=== PATIENT | female | born 1935 | race Caucasian/White ===

== ENCOUNTER 2017-10-21 20:37 | Inpatient (IN) | payer MEDICARE, MEDICAID ==
[~2017-10-21] VITALS: Ht 160 cm; Wt 73.5 kg
[2017-10-21] MEDS ORDERED: LORAZEPAM 2 MG/1 ML VIAL ONE (20:48)
[2017-10-21] MEDS ORDERED: LORAZEPAM 2 MG/1 ML VIAL IM ONE (21:00)
--- NOTE | 2017-10-21 21:00 | NUR ---
PT BIB PRIVATE AMBULANCE FROM [facility] WITH 5150 (DTO). UPON ARRIVAL, PT IS AGITATED & YELLING AT STAFF MEMBERS.
[2017-10-21 21:27] LABS: BASOPHILS # (AUTO) 0.1 K/uL (0.0-8.0); BASOPHILS % (AUTO) 0.7 % (0.0-2.0); EOSINOPHILS # (AUTO) 0.2 K/uL (0.0-0.7); EOSINOPHILS % (AUTO) 1.3 % (0.0-7.0); HEMATOCRIT 44.3 % (31.2-41.9); HEMOGLOBIN 14.6 g/dL (10.9-14.3); LYMPHOCYTES # (AUTO) 1.6 K/uL (20.0-40.0); LYMPHOCYTES % (AUTO) 12.3 % (20.5-51.5); MEAN CORPUSCULAR HEMOGLOBIN 27.2 uug (24.7-32.8); MEAN CORPUSCULAR HGB CONC 33 g/dL (32.3-35.6); MEAN CORPUSCULAR VOLUME 82.5 fL (75.5-95.3); NEUTROPHILS # (AUTO) 9.9 K/uL (1.8-8.9); NEUTROPHILS % (AUTO) 77.7 % (38.5-71.5); PLATELET COUNT (AUTO) 167 K/uL (179-408); RED BLOOD CELL COUNT(AUTO) 5.37 MIL/uL (3.63-4.92); WHITE BLOOD COUNT (AUTO) 12.8 K/uL (3.8-11.8)
[2017-10-21 21:39] LABS: ETHANOL < 3 MG/DL (0-0)
[2017-10-21 21:43] LABS: CARBON DIOXIDE 26 mmol/L (21-32); CHLORIDE 105 mmol/L (98-107); GLUCOSE 161 mg/dL (74-106); POTASSIUM 3.7 mmol/L (3.5-5.1); UREA NITROGEN, BLOOD 21 mg/dL (7-18)
[2017-10-21 21:49] LABS: ALANINE AMINOTRANSFERASE 22 U/L (14-59); ALKALINE PHOSPHATASE 70 U/L (50-136); ASPARTATE AMINOTRANSFERASE 23 U/L (15-37); BILIRUBIN,DIRECT 0.2 mg/dL (0.0-0.2); BILIRUBIN,TOTAL 0.8 mg/dL (0.2-1.0); TOTAL PROTEIN, SERUM 7.6 g/dL (6.4-8.2)
[2017-10-21 21:52] LABS: THYROID STIMULATING HORMONE 1.754 mIU/mL (0.358-3.740)
[2017-10-21 21:57] LABS: ACETAMINOPHEN < 2.0 ug/mL (10-30)
[2017-10-21] MEDS ORDERED: RISP0.253 PO (22:06)
[2017-10-21] MEDS ORDERED: VALP250S3 PO (22:06)
[2017-10-21] MEDS ORDERED: DOCU100C36 PO (22:06)
[2017-10-21] MEDS ORDERED: CARV3.122 PO (22:06)
[2017-10-21] MEDS ORDERED: ASPI-605 PO (22:06)
[2017-10-21] MEDS ORDERED: MULT1TAB73 PO (22:06)
[2017-10-21] MEDS ORDERED: ACET325T53 PO (22:06)
[2017-10-21] MEDS ORDERED: CLON0.3P TD (22:06)
[2017-10-21] MEDS ORDERED: LORA10TA7 PO (22:06)
[2017-10-21] MEDS ORDERED: CYAN10009 PO (22:06)
[2017-10-21] MEDS ORDERED: MAGN400O6 PO (22:06)
--- NOTE | 2017-10-21 22:40 | NUR ---
PT'S URINE SAMPLE BROUGHT TO LAB
[2017-10-21 23:06] LABS: *BILIRUBIN,URIN NEGATIVE (NEGATIVE); *BLOOD, URINE 1+ (NEGATIVE); *CLARITY,URINE CLEAR (CLEAR); *COLOR,URINE YELLOW (YELLOW); *KETONES,URINE NEGATIVE (NEGATIVE); *PROTEIN,URINE 1+ (NEGATIVE); *UROBILINOGEN,URINE 0.2 E.U./dl (NORMAL); LEUKOCYTE ESTERASE ,URINE TRACE (NEGATIVE); NITRITE, URINE NEGATIVE (NEGATIVE); UGLUCOSE NEGATIVE (NEGATIVE)
[2017-10-21 23:07] LABS: *AMPHETAMINE, URINE NEGATIVE (NEGATIVE); *BARBITURATE, URINE NEGATIVE (NEGATIVE); *CANNABINOID, URINE NEGATIVE (NEGATIVE); *COCCAINE, URINE NEGATIVE (NEGATIVE); *OPIATE, URINE NEGATIVE (NEGATIVE); *PHENCYCLIDINE SCREEN,URINE NEGATIVE (NEGATIVE)
[2017-10-21 23:26] LABS: BACTERIA,URINE NONE SEEN /HPF (NONE SEEN); SQUAMOUS EPITHELIAL CELL,UR FEW /HPF (NONE SEEN)
--- NOTE | 2017-10-21 23:40 | NUR ---
Pt. admitted to MHU , under care of JULIO/DUC Belongs List completed. mrsa swab completed
[2017-10-22 00:05] VITALS: BP 159/89
[2017-10-22] MEDS ORDERED: MAGNESIUM HYDROXIDE 30 ML LIQUID UDC PO PRN (00:30)
[2017-10-22] MEDS ORDERED: ACETAMINOPHEN 325 MG TABLET PO PRN (00:30)
[2017-10-22] MEDS ORDERED: MAG HYDROX/AL HYDROX/SIMETH 30 ML LIQUID UDC PO PRN (00:30)
[2017-10-22] MEDS ORDERED: LORAZEPAM 1 MG TABLET PO PRN (00:30)
--- NOTE | 2017-10-22 01:38 | NUR ---
ADMITTED 82 YEAR BRUNEIAN FEMALE ON 5150 FOR DTO, FROM E. PER REPORT, PT CAME FROM [facility] WHERE SHE WAS BEING AGGRESSIVE WITH THE OTHER RESIDENTS. PT IS PLEASANTLY CONFUSED, GUARDED WITH FLAT AFFECT MOOD.DENIES ANY PAIN, UNABLE TO OBTAIN RELEVANT INFORMATION DUE TO MENTAL STATUS AND LANGUAGE BARRIER. WILL CONTINUE TO MONITOR CLOSELY.
--- NOTE | 2017-10-22 06:22 | NUR ---
PT AWAKE, ANGRY, LABILE, UNPREDICTABLE, AGITATED, AMBULATING WITH UNSTEADY GAIT, RESISTING REDIRECTION, REFUSING ANTI ANXIETY MEDICATION. PLACED NEAR THE NURSES STATION FOR SAFETY PRECAUTION, MONITOR CLOSELY.
[2017-10-22 08:00] VITALS: BP 178/79
--- NOTE | 2017-10-22 08:46 | NUR ---
GPS/RN-Patient hypertensive this am, reviewed meds, Epic notified of med recon needed, order received from DIRECTOR OF CATERING, Keeley Robbins for Clonidine patch, patient previously on med at facility. orders read back Clonidine TTS 3 1 patch weekly every
--- NOTE | 2017-10-22 08:57 | NUR ---
GPS/RN- Patient anxious and restless this am, assisted with adls, toilette, refused breakfast, irritable and angry at this time. Albanian and Barbadian speaking only, Other nurse assist with translating Manuel, RN, patient verbalizing she is not going to eat she is on strike needs to be returned to [place], difficult to redirect, hyperverbal rambling per nurse, she insists on being returned to [place] unable to be redirected, angry and agitated, yelling, pressured speech. Dr Estrada notified Haldol 2mg IM once and Ativan 1mg IM once, orders read back.
[2017-10-22] MEDS ORDERED: HALOPERIDOL LACTATE 5 MG/1 ML VIAL IM ONE ×2 (09:00→12:15)
[2017-10-22] MEDS ORDERED: LORAZEPAM 2 MG/1 ML VIAL IM ONE ×2 (09:00→12:15)
[2017-10-22] MEDS ORDERED: CLONIDINE-TTS 3 PATCH TD SCH (09:00)
--- NOTE | 2017-10-22 09:45 | NUR ---
Gps/Rn- patient calmer, no need for Injection. patient assisted with adls requires sitter for ADLs fall risk unsteady gait at times over estimates. history of falls at facility. Staff assisting with adls. SItter ordered patient high fall risk, wonders.
--- NOTE | 2017-10-22 10:14 | NUR ---
Gps/Evp Marketing- Anxious restless, tried Staff from ER to translate Kenyan , per garment worker patient was alert/oriented x 1-2 . Toileted as needed. Appeared to calm down when out of shaq-chair, gait slightly unsteady, safety reviewed and emphasized. Kept patient infront of the Nurses station for safety. Patient very observant, unable to apply clonidine TTS patch , will try again at a later time.
--- NOTE | 2017-10-22 12:08 | NUR ---
GPS/RN- refusing PO meds, patient escalating again, unable to redirect. Orders received for IM Haldol 2mg IM ONCE, Ativan 1mg IM Once. orders read back
--- NOTE | 2017-10-22 12:43 | NUR ---
GPS/RN- Sitter at bedside for patient, patient is unpredictable.wonders angry and aggressive when redirected. intrusive in nursing room unable to redirect. fall risk, history of falls. sitter ordered continue at side
[2017-10-22] MEDS: CEPHALEXIN MONOHYDRATE 250 MG CAPSULE PO SCH ×2 (14:00→21:54)
--- NOTE | 2017-10-22 14:02 | NUR ---
GPS/RN- PATIENT SLEEPING AT THIS TIME NO DISTRESS NOTED. SITTER AT SIDE. CONTINUE TO MONITOR
[2017-10-22 16:00] VITALS: BP 143/82
--- NOTE | 2017-10-22 16:15 | NUR ---
Gps/Shot Core Drill Operator Helper- Patient asleep at this time, continue to monitor safety, pt. placed on 1:1 Nursing supervision
[2017-10-22] MEDS: CARVEDILOL 3.125 MG TABLET PO SCH (17:00)
--- NOTE | 2017-10-22 17:01 | NUR ---
GPS/RN- VACCINES (PNA and Flu) Contacted [facility], Spoke with ROLA Aguilera, contact # [phone]. patient refused vaccines at facility
[2017-10-22] MEDS: CLONIDINE-TTS 3 PATCH TD SCH (17:33)
--- NOTE | 2017-10-22 17:53 | NUR ---
Gps/Wood Carver Hand- Patient remains asleep at this time, in no distress, continue to monitor safety.
[2017-10-22 20:33] VITALS: BP 187/85
[2017-10-22] MEDS: risperiDONE 0.5 MG TABLET PO SCH (21:00)
[2017-10-22] MEDS: LORATADINE 10 MG TABLET PO SCH (21:00)
--- NOTE | 2017-10-22 22:00 | NUR ---
received to care, angry and anxious, initially difficult to redirect. 1:1 sitter at side, for safety. by 1999, she was lying in bed, and appeared calmer. refused ALL medications, and snacks, offered, INCLUDING KEFLEX FOR UTI, which she has refused all day. also refused to have her b/p rechecked, but appears asymptomatic. as of 2199, she appears to be asleep, in bed. sitter at side, for safety. no distress noted. will continue to monitor clsoely.
[2017-10-23] MEDS: CEPHALEXIN MONOHYDRATE 250 MG CAPSULE PO SCH ×3 (06:00→21:16)
--- NOTE | 2017-10-23 06:40 | NUR ---
slept 7.5 hours, total. sitter remains at bedside, for safety. was assited to the bathroom to void, 3 times last night. continues to refuse all medications, including AM keflex. continues to sleep. no distress noted.
[2017-10-23 07:30] VITALS: BP 156/76
[2017-10-23] MEDS: ASPIRIN EC 81 MG TABLET.DR PO SCH (09:00)
[2017-10-23] MEDS: CARVEDILOL 3.125 MG TABLET PO SCH ×2 (09:00→16:47)
[2017-10-23] MEDS: MULTIVITAMINS,THERAPEUTIC TABLET PO SCH (09:00)
[2017-10-23] MEDS ORDERED: CLONIDINE-TTS 3 PATCH TD SCH (09:00)
[2017-10-23] MEDS: DOCUSATE SODIUM 100 MG CAPSULE PO SCH (09:00)
[2017-10-23] MEDS: risperiDONE 0.5 MG TABLET PO SCH ×2 (09:00→20:42)
[2017-10-23] MEDS: CYANOCOBALAMIN 1,000 MCG TABLET PO SCH (09:00)
--- NOTE | 2017-10-23 12:06 | NUR ---
Initial DC Plan: Patient is currently residing at [facility] [[address] [place] [address]; ]. SW will follow up with [facility] to confirm if they can accept patient back. SW will follow up with MD, patient, and patient's public guardian Getachew Gracia [[phone]] to discuss most appropriate discharge plans. SW will form a safe and proper discharge.
[2017-10-23 15:37] VITALS: BP_SYST 156; BP_SYST 158; BP_DIAS 76; BP_DIAS 90
--- NOTE | 2017-10-23 17:04 | NUR ---
Gps/Defensive Fire Control Systems Operator- Complained of itching , noted skin very dry, lotion offered, ativan 1 mg po. offered, refused. Remains on 1:1 Nursing supervision for safety. Patient very suspicious . Speaks South African as well as Persian.Patient refused all routine medications.
[2017-10-23] MEDS: LORATADINE 10 MG TABLET PO SCH (20:42)
[2017-10-23 21:13] VITALS: BP 160/97
[2017-10-23 22:20] VITALS: BP 143/89
[2017-10-24] MEDS: CEPHALEXIN MONOHYDRATE 250 MG CAPSULE PO SCH ×4 (05:45→21:50)
--- NOTE | 2017-10-24 06:06 | NUR ---
GPS:Remain uncooperative with medications and care. slept 6.5 hours, total. 1:1 sitter remains at bedside, for safety. Assisted to the bathroom to void, 2 times last night. continues to refuse all medications, including AM keflex. continues Plan of care. no distress noted.
[2017-10-24 07:30] VITALS: BP 138/91
[2017-10-24] MEDS: CYANOCOBALAMIN 1,000 MCG TABLET PO SCH (09:00)
[2017-10-24] MEDS: MULTIVITAMINS,THERAPEUTIC TABLET PO SCH (09:00)
[2017-10-24] MEDS: ASPIRIN EC 81 MG TABLET.DR PO SCH (09:00)
[2017-10-24] MEDS: CARVEDILOL 3.125 MG TABLET PO SCH ×2 (09:00→17:00)
[2017-10-24] MEDS: DOCUSATE SODIUM 100 MG CAPSULE PO SCH (09:00)
[2017-10-24] MEDS: risperiDONE 0.5 MG TABLET PO SCH ×2 (09:00→21:00)
--- NOTE | 2017-10-24 11:14 | NUR ---
patient had a fainting episode in shower at 1100 am and was with rolling eyes bilaterally no s/s of respiratory distress, transported to [place] [address] b and then patient began to wake up with no adverse symptoms code rapid called and patient refused to go for scan and e.r and catapree patch from 10/22 found on floor, re ordered new patch of which paTIENT REFUSED VIA PARKS AND RECREATION MANAGER AND STAFF B/P 160/ 69 OPT ADAMENTLY REFUSED AND STAYED IN ROOM MD . AWARE OF REFUSAL NO DISTRESS NOTED AT THIS TIME , PT VERY AGITATED WHEN BEING APPROACHED
--- NOTE | 2017-10-24 11:19 | NUR ---
PATIENT WILL BE CONTINUED MONITORED FOR S/S OF DISTRESS
--- NOTE | 2017-10-24 11:20 | NUR ---
GPS/ RN- RAPID RESPONSE patient showering this morning, DHIRAJ Juárez with patient in shower for assist. Received report patient became altered when in shower she was sitting on shower bench talking to DHIRAJ when she became altered, slurred some of her words and slumping over to her left, patient having bowel movement as well. Upon assessment at this time I observed patient altered from her baseline, patient continued to slur her words, slumping to her left side, eye lethargic and rolling, patient not responding or interacting like she normally does. Rapid Response called at 10:47am. Vitals signs 161/141 hr 68, RR 16. Staff responding per protocol including Dr Watts and Eric Flowers, Predator Control Trapper. Patient continues altered from baseline, patient assisted/ transferred to wheelchair with staff Harrison Kelly LVN. Patient continues altered on wheelchair, eyes lethargic, lying back on chair no interaction when calling her name. Code Stroke called. Patient wheeled back to her room, patient becoming mores responsive, scratching her face. [facility], patient completely responsive, becoming agitated restless angry, climbing out of [facility]. Received assistance from CodeGuardNegin with interpreting patient, Malawian speaking only. Patient stating she is ok. patient is aware of her name, she knows she is in a hospital and partially date, when asked if she knows what happened to her, she states that she was showering three times because she was itchy pointing to the back of her legs (patient with eczema of bilateral lower extremities). does not elaborate any further to incident. Patient now remains at baseline at this time. Continue to observe no further orders, code stroke was cancelled. Patient refused to go to ER refused or to leave unit for evaluation jumping out of [facility]. Returned to her baseline. Continue to monitor Vital signs 98/58, HR 113, RR 18 02 sat 94%, temp 98.0 ambulating throughout unit, continue to monitor. Dr Cunha notified of patient status. No labs available on patient, continues to refuse care and labs this am. Patient refusing meds, patient has no blood pressure patch Clonidine on, she removed.
--- NOTE | 2017-10-24 13:47 | NUR ---
GPS/RN- patient sitting up in her bed eating bread. no altered mental status from baseline continue to monitor
[2017-10-24 17:02] VITALS: BP 112/73
--- NOTE | 2017-10-24 18:19 | NUR ---
patient remains non compliant with every thing and no one can change her even with interperter continue to encourage and assist as needed
--- NOTE | 2017-10-24 18:59 | NUR ---
GPS/RN- Patient remains responsive continues at her baseline, ambulating throughout unit, patient fall risk, frequent monitoring, bed alarm set staff continuously checking on patient. remains stable.
[2017-10-24 20:00] VITALS: BP 146/82
[2017-10-24] MEDS: LORATADINE 10 MG TABLET PO SCH (21:00)
--- NOTE | 2017-10-24 21:00 | NUR ---
RECEIVE PT ASLEEP ON BED. EASILY AROUSABLE. PT SHOWS NO SIGNS OF DISTRESS. PT REFUSE TO TAKE HER MEDICATION. WILL CONTINUE TO MONITOR.
[2017-10-25] MEDS: CEPHALEXIN MONOHYDRATE 250 MG CAPSULE PO SCH ×3 (06:00→21:15)
--- NOTE | 2017-10-25 06:41 | NUR ---
PT SLEPT THROUGHOUT THE SHIFT. PT SHOWS NO SIGNS OF DISTRESS. PT TALKING IN VINCENTIAN. PT WANTS TO CLOSE THE DOOR WITHOUT THE SITTER INSIDE.REFUSE TO TAKE MEDICATIONS. PT SLIGHTLY ANXIOUS. REFUSE TO TAKE HER BLOOD DRAWN FOR AM LABS. SAFETY AND COMFORT PROVIDED. WILL ENDORSE TO DAYSHIFT NURSE.
[2017-10-25 07:30] VITALS: BP 129/69
[2017-10-25] MEDS: risperiDONE 0.5 MG TABLET PO SCH ×3 (09:00→21:00)
[2017-10-25] MEDS: DOCUSATE SODIUM 100 MG CAPSULE PO SCH ×2 (09:00→10:20)
[2017-10-25] MEDS: ASPIRIN EC 81 MG TABLET.DR PO SCH ×2 (09:00→10:21)
[2017-10-25] MEDS: CYANOCOBALAMIN 1,000 MCG TABLET PO SCH ×2 (09:00→10:21)
[2017-10-25] MEDS: CARVEDILOL 3.125 MG TABLET PO SCH ×3 (09:00→16:51)
[2017-10-25] MEDS: MULTIVITAMINS,THERAPEUTIC TABLET PO SCH ×2 (09:00→10:21)
--- NOTE | 2017-10-25 18:30 | NUR ---
MITESH MAGAÑA AND DR. MIGUEL NOTIFIED THAT ERIKAGUNATALIO IS COMPLETELY NON-COMPLIANT. REFUSING TO EAT AND REFUSING ALL MEDS. TRANSLATORS SAMMIE CCU RN AT BEDSIDE TO TALK WITH PT. TO TRY TO HAVE HER UNDERSTAND THE IMPORTANCE OF COMPLIANCE WITHOUT SUCCESS.
[2017-10-25 20:00] VITALS: BP 155/74
[2017-10-25] MEDS: LORATADINE 10 MG TABLET PO SCH (21:00)
--- NOTE | 2017-10-25 21:00 | NUR ---
RECEIVED PT AWAKE ON BED. ALERT, ORIENTEDX2. SITTER AT BEDSIDE. SHE'S SCRATCHING HER BOTH LEGS. SHE FEELS ITCHY. I GAVE HER WET TOWEL AND PUT LOTION ON HER LEGS TO ALLEVIATE THE ITCHINESS. PT DOESN'T WANT TO TAKE ANY MEDICATION. PT SHOWS NO SIGNS OF ACUTE DISTRESS. SAFETY PROVIDED. WILL CONTINUE TO MONITOR.
--- NOTE | 2017-10-26 05:45 | NUR ---
PT SLEPT THROUGHOUT THE SHIFT. PT NONCOMPLIANT WITH MEDICATION.REFUSE MEDICATION. OFFERED HER FOOD BUT DOESN'T LIKE TO EAT. SITTER AT BEDSIDE.PT HAVE ITCHINESS ON HER LEGS.GAVE WET TOWEL TO WIPE IT AND PUT LOTION. SAFETY PROVIDED. WILL ENDORSE TO DAYSHIFT NURSE.
[2017-10-26] MEDS: CEPHALEXIN MONOHYDRATE 250 MG CAPSULE PO SCH ×3 (06:00→22:00)
[2017-10-26 07:30] VITALS: BP 133/80
[2017-10-26] MEDS: CARVEDILOL 3.125 MG TABLET PO SCH ×2 (09:00→17:00)
[2017-10-26] MEDS: MULTIVITAMINS,THERAPEUTIC TABLET PO SCH (09:00)
[2017-10-26] MEDS: risperiDONE 0.5 MG TABLET PO SCH ×2 (09:00→21:00)
[2017-10-26] MEDS: ASPIRIN EC 81 MG TABLET.DR PO SCH (09:00)
[2017-10-26] MEDS: DOCUSATE SODIUM 100 MG CAPSULE PO SCH (09:00)
[2017-10-26] MEDS: CYANOCOBALAMIN 1,000 MCG TABLET PO SCH (09:00)
[2017-10-26 16:28] VITALS: BP 114/67
[2017-10-26 19:30] VITALS: BP 139/69
--- NOTE | 2017-10-26 20:00 | NUR ---
RECEIVED PATIENT IN HER ROOM SITTING IN HER BED. SHE CONTINUE ON 1:1 SUPERVISION FOR FALL PRECAUTION. PT DOES NOT SPEAK SERBIAN, BUT APPEARS, CALM AT THIS TIME. SAFETY EMPHASIS.
[2017-10-26] MEDS: LORATADINE 10 MG TABLET PO SCH (21:00)
--- NOTE | 2017-10-26 22:15 | NUR ---
PATIENT REFUSED ALL HER QHS MEDICATIONS. ATTEMPTED TO REASSURED PT; HOWEVER, SHE DOES NOT UNDERSTAND SYRIAC. WILL CONTINUE TO MONITOR CLOSELY.
[2017-10-27] MEDS: CEPHALEXIN MONOHYDRATE 250 MG CAPSULE PO SCH (06:00)
[2017-10-27 07:30] VITALS: BP 107/72
[2017-10-27] MEDS: CARVEDILOL 3.125 MG TABLET PO SCH ×2 (08:26→16:05)
[2017-10-27] MEDS: DOCUSATE SODIUM 100 MG CAPSULE PO SCH (08:26)
[2017-10-27] MEDS: MULTIVITAMINS,THERAPEUTIC TABLET PO SCH (08:27)
[2017-10-27] MEDS: risperiDONE 0.5 MG TABLET PO SCH ×2 (08:27→21:00)
[2017-10-27] MEDS: ASPIRIN EC 81 MG TABLET.DR PO SCH (08:27)
[2017-10-27] MEDS: CYANOCOBALAMIN 1,000 MCG TABLET PO SCH (08:28)
[2017-10-27] MEDS: TRIAMCINOLONE ACET 0.1% CREAM 15 GM TUBE TOP SCH ×2 (09:00→16:34)
[2017-10-27 16:24] VITALS: BP 149/64
[2017-10-27 19:48] VITALS: BP 149/62
--- NOTE | 2017-10-27 20:00 | NUR ---
RECEIVED PATIENT IN HER ROOM SITTING IN HER BED. SHE CONTINUE ON 1:1 SUPERVISION FOR FALL PRECAUTION. PT DOES NOT SPEAK MAORI, SHE IS NOTED CALM AND PLEASANT AT THIS TIME. FLIGHT OF IDEAS (MACANESE SPEAKER). SHE CONTINUE REFUSING MEDICATIONS. SAFETY WAS EMPHASIS.
[2017-10-27] MEDS: LORATADINE 10 MG TABLET PO SCH (21:00)
[2017-10-27] MEDS: RIVASTIGMINE TARTRATE 1.5 MG CAPSULE PO SCH (21:00)
--- NOTE | 2017-10-27 22:00 | NUR ---
PATIENT REFUSED ALL HER QHS MEDICATION.
[2017-10-28] MEDS: DOCUSATE SODIUM 100 MG CAPSULE PO SCH (08:10)
[2017-10-28] MEDS: CARVEDILOL 3.125 MG TABLET PO SCH ×2 (08:11→16:05)
[2017-10-28] MEDS: ASPIRIN EC 81 MG TABLET.DR PO SCH (08:12)
[2017-10-28] MEDS: risperiDONE 0.5 MG TABLET PO SCH (08:13)
[2017-10-28] MEDS: RIVASTIGMINE TARTRATE 1.5 MG CAPSULE PO SCH ×2 (08:13→21:00)
[2017-10-28] MEDS: MULTIVITAMINS,THERAPEUTIC TABLET PO SCH (08:13)
[2017-10-28] MEDS: CYANOCOBALAMIN 1,000 MCG TABLET PO SCH (08:14)
[2017-10-28] MEDS: hydrALAZINE HCL 10 MG TABLET PO PRN ×2 (08:44→12:04)
[2017-10-28] MEDS: TRIAMCINOLONE ACET 0.1% CREAM 15 GM TUBE TOP SCH ×2 (09:00→16:05)
--- NOTE | 2017-10-28 09:46 | NUR ---
PATIENT COMPLETELY REFUSED ALL HER MEDICATIONS, EDUCATED THE PT IN ESTONIAN ABOUT THE DANGERS OFF HIGH BLOOD PRESSURE , PT STATES "I NEVER TAKE THE PILLS, ITS NOT LIKE I WILL STAY HERE FOREVER". PT REFUSED EDUCATION.
[2017-10-28 09:54] VITALS: BP 203/95
--- NOTE | 2017-10-28 15:35 | NUR ---
Discharge Planning Note: SW attempted to contact patient's public guardian Getachew Gracia [[phone]] on 10/26 and 10/27 to discuss discharge planning. SW left voicemails. SW will continue to follow up.
[2017-10-28 16:00] VITALS: BP 180/92
[2017-10-28] MEDS: HALOPERIDOL 1 MG TABLET PO SCH (17:00)
[2017-10-28] MEDS: HALOPERIDOL LACTATE 5 MG/1 ML VIAL IM PRN (17:51)
[2017-10-28 20:14] VITALS: BP 175/84
[2017-10-28] MEDS: LORATADINE 10 MG TABLET PO SCH (21:00)
--- NOTE | 2017-10-28 22:00 | NUR ---
received to care, sitting in hallway, 1:1 sitter at side, for safety. remains non compliant. refused all medications. food, or water offered. as of 2199, she remains sitting in hallway. no distress noted. will continue to monitor clsoely.
--- NOTE | 2017-10-28 23:30 | NUR ---
appears to be asleep. no distress noted. sitter remains at side.
--- NOTE | 2017-10-29 06:00 | NUR ---
slept 4.5 hours, total. remains asleep. no distress noted.
--- NOTE | 2017-10-29 07:00 | NUR ---
RECEIVED REPORT FROM MEDIA SUPERVISOR, PATIENT IN ROOM 1:1 SITTER AT BEDSIDE, NO ACUTE DISTRESS NOTED. DANISH SPEAKING, CAN UNDERSTAND LITTLE PALESTINIAN. APPEARS TO BE CALM BUT REMAINS UNCCOPERATIVE AND NON COMPLIANT WITH MEDICATIONS PER JOSE QUIROS. COMFORT MEASURES PROVIDED. SAFETY PRECS OBSERVED AT ALL TIMES. WILL CONTINUE TO MONITOR CLOSELY.
[2017-10-29 07:30] VITALS: BP 148/70
[2017-10-29] MEDS: DOCUSATE SODIUM 100 MG CAPSULE PO SCH (08:24)
[2017-10-29] MEDS: CARVEDILOL 3.125 MG TABLET PO SCH ×2 (08:24→17:40)
[2017-10-29] MEDS: ASPIRIN EC 81 MG TABLET.DR PO SCH (08:25)
[2017-10-29] MEDS: CYANOCOBALAMIN 1,000 MCG TABLET PO SCH (08:25)
[2017-10-29] MEDS: MULTIVITAMINS,THERAPEUTIC TABLET PO SCH (08:25)
[2017-10-29] MEDS: HALOPERIDOL 1 MG TABLET PO SCH ×2 (08:25→17:41)
[2017-10-29] MEDS: RIVASTIGMINE TARTRATE 1.5 MG CAPSULE PO SCH ×2 (08:25→20:34)
[2017-10-29] MEDS: TRIAMCINOLONE ACET 0.1% CREAM 15 GM TUBE TOP SCH ×2 (08:26→17:42)
[2017-10-29] MEDS: CLONIDINE-TTS 3 PATCH TD SCH (08:36)
--- NOTE | 2017-10-29 08:42 | NUR ---
PATIENT REFUSED ALL AM MEDS INCLUDING HALDOL 1MG PO, WILL ADMINISTER HALDOL 1MG IM. WILL CONTINUE TO MONITOR.
--- NOTE | 2017-10-29 09:30 | NUR ---
RE-OFFERED HALDOL 1 MG PO X 3 CONTINUED TO REFUSE.
[2017-10-29] MEDS: HALOPERIDOL LACTATE 5 MG/1 ML VIAL IM PRN (09:54)
--- NOTE | 2017-10-29 09:56 | NUR ---
TRIED TO REASON WITH PATIENT TO TAKE HALDOL PO, PATIENT GOT AGITATED AND ANGRY, STARTED YELLING IN [place], CALLED SECURITY TO HELP GIVE HALDOL IM INJECTION. ADMINISTERED HALDOL 1 MG 1M ON LEFT BUTTOCK, PATIENT CONTINUES TO YELL. WILL CONTINUE TO MONITOR LCOSELY.
--- NOTE | 2017-10-29 10:19 | NUR ---
Discharge Planning Note: RAYMON called the on-duty worker for the Public Guardian's Office [[phone]] to discuss patient's case. On-duty worker Dalia gave me a different phone number for public guardikulwant Chilel [[phone]]. RAYMON attempted to call public guardikulwant Chilel, however voicemail was full and RAYMON was unable to leave a message. RAYMON called the on-duty worker again to follow up. There was no answer. RAYMON left a voicemail. RAYMON will continue to follow up.
[2017-10-29 16:23] VITALS: BP 156/84
--- NOTE | 2017-10-29 19:01 | NUR ---
PATIENT IN ROOM WITH 1:! SITTER, APPEARS TO BE CALM AT THIS TIME, ATE DINNER, NO ACUTE DISTRESS NOTED AT THIS TIME. KEPT COMFORTABLE. ALL NEEDS ATTENDED AND ANTICIPATED. SAFETY PRECS OBSERVED AT ALL TIMES. WILL CONTINUE TO MONITOR CLOSELY.
[2017-10-29] MEDS: LORATADINE 10 MG TABLET PO SCH (20:34)
[2017-10-29 21:17] VITALS: BP 119/77
--- NOTE | 2017-10-29 22:00 | NUR ---
received to care, sitting in her room, 1:1 sitter at side, for safety. remains non compliant. refused all medications, but took a bedtime snack, and fluids. as of 2200, she appears to be asleep. no distress noted. will continue to monitor closely.
--- NOTE | 2017-10-30 06:00 | NUR ---
slept 7.0 hours, total. remains calm. no distress noted.
[2017-10-30 07:30] VITALS: BP 154/82
[2017-10-30] MEDS: DOCUSATE SODIUM 100 MG CAPSULE PO SCH (09:00)
[2017-10-30] MEDS: HALOPERIDOL 1 MG TABLET PO SCH ×4 (09:00→19:05)
[2017-10-30] MEDS: ASPIRIN EC 81 MG TABLET.DR PO SCH (09:00)
[2017-10-30] MEDS: CYANOCOBALAMIN 1,000 MCG TABLET PO SCH (09:00)
[2017-10-30] MEDS: CARVEDILOL 3.125 MG TABLET PO SCH ×2 (09:00→16:37)
[2017-10-30] MEDS: MULTIVITAMINS,THERAPEUTIC TABLET PO SCH (09:00)
[2017-10-30] MEDS: RIVASTIGMINE TARTRATE 1.5 MG CAPSULE PO SCH ×2 (09:00→20:57)
[2017-10-30] MEDS: HALOPERIDOL LACTATE 5 MG/1 ML VIAL IM PRN ×2 (10:40→19:16)
--- NOTE | 2017-10-30 10:52 | NUR ---
Gps/Milk Pickup Truck Driver- Re -offered routine medications couple of times patient remains to refused. Haldol 1 mg given IM as ordered , patient remains uncooperative with staff, kicking, hitting staff , trying to hit staff with her front wheel walker, yelling at the top of her voice , difficulty redirecting patient. Safety continue to emphasized.
--- NOTE | 2017-10-30 10:56 | NUR ---
Gps/Cost Recovery Technician- Patient assisted to shaq-chair for safety, remains yelling, screaming ,hitting table, remains yelling ,screaming .
[2017-10-30] MEDS: TRIAMCINOLONE ACET 0.1% CREAM 15 GM TUBE TOP SCH ×2 (14:20→16:39)
[2017-10-30 15:41] VITALS: BP 109/57
--- NOTE | 2017-10-30 17:00 | NUR ---
Gps/Wire Twisting Machine Operator- Patient quiet , pleasant affect this pm. smiling at the staff, no display of rude behavior noted.. Remains on 1:1 Nursing supervision for safety.
[2017-10-30] MEDS: LORATADINE 10 MG TABLET PO SCH (20:57)
--- NOTE | 2017-10-31 06:50 | NUR ---
continue on 1:1 sitter for safety. Pt refused night meds last night. No signs of agitation during shift. Slept 7 hours. Safety maintained
[2017-10-31 07:30] VITALS: BP 135/54
[2017-10-31] MEDS: CARVEDILOL 3.125 MG TABLET PO SCH ×2 (08:56→17:00)
[2017-10-31] MEDS: DOCUSATE SODIUM 100 MG CAPSULE PO SCH (08:56)
[2017-10-31] MEDS: RIVASTIGMINE TARTRATE 1.5 MG CAPSULE PO SCH ×2 (08:57→21:00)
[2017-10-31] MEDS: MULTIVITAMINS,THERAPEUTIC TABLET PO SCH (08:57)
[2017-10-31] MEDS: ASPIRIN EC 81 MG TABLET.DR PO SCH (08:57)
[2017-10-31] MEDS: CYANOCOBALAMIN 1,000 MCG TABLET PO SCH (08:58)
[2017-10-31] MEDS: TRIAMCINOLONE ACET 0.1% CREAM 15 GM TUBE TOP SCH ×2 (08:58→16:47)
[2017-10-31] MEDS: HALOPERIDOL 1 MG TABLET PO SCH ×3 (09:00→17:00)
[2017-10-31] MEDS: HALOPERIDOL LACTATE 5 MG/1 ML VIAL IM PRN ×3 (09:14→17:27)
--- NOTE | 2017-10-31 11:07 | NUR ---
Gps/Golf Cart Attendant- Showered self ind.after set up. had been cooperative with her sitter. Noted increased agitations, and labile behavior when staff try to administer haldol IM as ordered.
[2017-10-31 15:22] VITALS: BP 150/63
--- NOTE | 2017-10-31 17:35 | NUR ---
Gps/Fabric Pattern Grader- Patient was less resistive during the haldol 1 mg IM administration, administered to her RUOQ . Noted bumps and rashy area to her thighs and lower ext. triamcinolone cream was applied as ordered.Remains w/ 1:1 Nursing supervision for safety
[2017-10-31 20:00] VITALS: BP 143/73
[2017-10-31] MEDS: LORATADINE 10 MG TABLET PO SCH (21:00)
[2017-11-01 07:30] VITALS: BP 173/90
[2017-11-01] MEDS: DOCUSATE SODIUM 100 MG CAPSULE PO SCH (08:38)
[2017-11-01] MEDS: ASPIRIN EC 81 MG TABLET.DR PO SCH (08:39)
[2017-11-01] MEDS: RIVASTIGMINE TARTRATE 1.5 MG CAPSULE PO SCH ×2 (08:39→20:38)
[2017-11-01] MEDS: CARVEDILOL 3.125 MG TABLET PO SCH ×3 (08:39→17:25)
[2017-11-01] MEDS: MULTIVITAMINS,THERAPEUTIC TABLET PO SCH (08:39)
[2017-11-01] MEDS: CYANOCOBALAMIN 1,000 MCG TABLET PO SCH (08:40)
[2017-11-01] MEDS: TRIAMCINOLONE ACET 0.1% CREAM 15 GM TUBE TOP SCH ×2 (08:40→17:25)
[2017-11-01] MEDS: HALOPERIDOL 1 MG TABLET PO SCH ×4 (08:57→17:25)
--- NOTE | 2017-11-01 09:15 | NUR ---
Gps/Soil Technologist- Routine oral medication haldol 1 mg po as well as well as coreg 1 tab. administered with no difficulty noted after Bookmaker'S Clerk Nurse explained to pt. in South African the impt. of the medication. Will continue to monitor medications compliance.
--- NOTE | 2017-11-01 13:30 | NUR ---
Gps/Aquacultural Worker Supervisor- Patient appeared to be calmer during lunch time, offered haldol 1 mg po. as ordered as well as hydralazine 10 mg 1 tab. po. b/p 167/89 HR 94 compliance noted.
[2017-11-01] MEDS: hydrALAZINE HCL 10 MG TABLET PO PRN (13:33)
[2017-11-01 15:28] VITALS: BP 157/76
[2017-11-01 17:46] VITALS: BP 166/77
[2017-11-01] MEDS: LORATADINE 10 MG TABLET PO SCH (20:38)
[2017-11-01 21:44] VITALS: BP 142/76
--- NOTE | 2017-11-01 23:28 | NUR ---
RECEIVED RESIDENT IN BED. SHE WAS CALM AND EVEN THOUGH SHE SPEAKS GRENADIAN SHE WAS ABLE TO UNDERSTAND THE NEED FOR HER TO TAKE HER MEDS.SHE WAS COMPLIANT WITH IT.WILL CONTINUE TO MONITOR CLOSELY.
[2017-11-02] MEDS: TEMAZEPAM 7.5 MG CAPSULE PO PRN (00:52)
[2017-11-02 05:38] LABS: *BILIRUBIN,URIN NEGATIVE (NEGATIVE); *BLOOD, URINE Trace-lysed (NEGATIVE); *CLARITY,URINE CLEAR (CLEAR); *COLOR,URINE YELLOW (YELLOW); *KETONES,URINE NEGATIVE (NEGATIVE); *PROTEIN,URINE NEGATIVE (NEGATIVE); *UROBILINOGEN,URINE 0.2 E.U./dl (NORMAL); LEUKOCYTE ESTERASE ,URINE NEGATIVE (NEGATIVE); NITRITE, URINE NEGATIVE (NEGATIVE); PH,URINE 7.5 (5.0-8.0); UGLUCOSE NEGATIVE (NEGATIVE)
[2017-11-02 05:47] LABS: BACTERIA,URINE NONE SEEN /HPF (NONE SEEN); RBC,URINE 0-3 /HPF (0-3); SQUAMOUS EPITHELIAL CELL,UR FEW /HPF (NONE SEEN); WBC,URINE 0-3 /HPF (0-3)
--- NOTE | 2017-11-02 06:19 | NUR ---
PATIENT SLEPT INTERMITTENTLY FOR APPROX. 4;30.SHE KEPT TRYING TO GET UP TO THE BATHROOM SEVERAL TIMES. WAS ASSISTED FOR ABOUT 8X TO THE BATHROOM.SHE HOWEVER DENIED BURNING OR DISCOMFORT ON MICTURATION. WILL CONTINUE TO MONITOR FOR SAFETY.
[2017-11-02 07:30] VITALS: BP 169/97
[2017-11-02] MEDS: RIVASTIGMINE TARTRATE 1.5 MG CAPSULE PO SCH ×2 (08:14→21:09)
[2017-11-02] MEDS: HALOPERIDOL 1 MG TABLET PO SCH ×3 (08:14→16:23)
[2017-11-02] MEDS: CARVEDILOL 3.125 MG TABLET PO SCH ×2 (08:15→16:24)
[2017-11-02] MEDS: MULTIVITAMINS,THERAPEUTIC TABLET PO SCH (09:00)
[2017-11-02] MEDS: DOCUSATE SODIUM 100 MG CAPSULE PO SCH (09:00)
[2017-11-02] MEDS: CYANOCOBALAMIN 1,000 MCG TABLET PO SCH (09:00)
[2017-11-02] MEDS: ASPIRIN EC 81 MG TABLET.DR PO SCH (09:00)
[2017-11-02] MEDS: TRIAMCINOLONE ACET 0.1% CREAM 15 GM TUBE TOP SCH ×2 (10:28→16:29)
[2017-11-02 16:16] VITALS: BP 92/65
[2017-11-02 19:45] VITALS: BP 155/68
[2017-11-02] MEDS: LORATADINE 10 MG TABLET PO SCH (21:09)
[2017-11-02] MEDS: risperiDONE 0.5 MG TABLET PO SCH (21:09)
[2017-11-03] MEDS: TEMAZEPAM 7.5 MG CAPSULE PO PRN (00:51)
--- NOTE | 2017-11-03 06:43 | NUR ---
Pt WAS GIVEN RESTORIL LAST NIGHT FOR INSOMNIA WITH GOOD EFFECT. Pt STAYED ASLEEP AFTER RESTORIL ADMINISTRATION. WOKE UP THIS MORNING AND WAS GIVEN A SHOWER. UPON FURTHER ASSESSMENT DURING SHOWER, NOTED RASHES AND NEW SKIN TEARS ON LOWER EXTREMITIES. PHOTOS TAKEN AND PLACED ON Pt CHART. WILL ENDORSE TO DAY SHIFT NURSE TO F/U WITH .
[2017-11-03 07:30] VITALS: BP 133/83
[2017-11-03] MEDS: ASPIRIN EC 81 MG TABLET.DR PO SCH (09:11)
[2017-11-03] MEDS: CYANOCOBALAMIN 1,000 MCG TABLET PO SCH (09:11)
[2017-11-03] MEDS: DOCUSATE SODIUM 100 MG CAPSULE PO SCH (09:11)
[2017-11-03] MEDS: RIVASTIGMINE TARTRATE 1.5 MG CAPSULE PO SCH (09:11)
[2017-11-03] MEDS: CARVEDILOL 3.125 MG TABLET PO SCH ×2 (09:12→17:07)
[2017-11-03] MEDS: TRIAMCINOLONE ACET 0.1% CREAM 15 GM TUBE TOP SCH ×2 (09:13→17:07)
[2017-11-03] MEDS: risperiDONE 0.5 MG TABLET PO SCH (09:13)
[2017-11-03] MEDS: MULTIVITAMINS,THERAPEUTIC TABLET PO SCH (09:13)
--- NOTE | 2017-11-03 09:40 | NUR ---
DURING MORNING ROUNDS, PT WAS FOUND AWAKE, BUT SLEEPY AND APPEARED TIRED. PT OPENS HER EYES AND CLOSES THEM RIGHT AFTER. SPEECH WAS NOTED TO BE SLOWER THEN USUAL. PT WAS ORIENTED X2. PT WAS TOO WEAK TO FEED SELF, HAD TO BE FEED. PT WAS ABLE TO SWALLOW SOFT FOOD WITHOUT ASPIRATION. PT TOOK HER MEDICATIONS ORDERED. PT WENT BACK TO SLEEP RIGHT AWAY AFTER CARE.
--- NOTE | 2017-11-03 10:09 | NUR ---
GPS/RN- Patient evaluated by physical therapy, noted significant weakness on left side. epic notified, CT of head without contrast ordered. patient is responsive. vitals stable this am, 133/83, hr 77, RR 18, temp 976 02 sat 94% on room air.
[2017-11-03] MEDS ORDERED: ONDANSETRON ODT 4 MG TAB.RAPDIS SL PRN (11:30)
[2017-11-03 11:55] LABS: BASOPHILS # (AUTO) 0.1 K/uL (0.0-8.0); BASOPHILS % (AUTO) 0.9 % (0.0-2.0); EOSINOPHILS # (AUTO) 0.2 K/uL (0.0-0.7); EOSINOPHILS % (AUTO) 2.1 % (0.0-7.0); HEMOGLOBIN 13.9 g/dL (10.9-14.3); LYMPHOCYTES # (AUTO) 1.3 K/uL (20.0-40.0); LYMPHOCYTES % (AUTO) 17.2 % (20.5-51.5); MEAN CORPUSCULAR HEMOGLOBIN 27.2 uug (24.7-32.8); MEAN CORPUSCULAR HGB CONC 33 g/dL (32.3-35.6); MEAN CORPUSCULAR VOLUME 81.9 fL (75.5-95.3); MONOCYTES # (AUTO) 0.8 K/uL (2.0-10.0); MONOCYTES % (AUTO) 10.6 % (0.0-11.0); NEUTROPHILS # (AUTO) 5.4 K/uL (1.8-8.9); NEUTROPHILS % (AUTO) 69.2 % (38.5-71.5); PLATELET COUNT (AUTO) 174 K/uL (179-408); RED BLOOD CELL COUNT(AUTO) 5.12 MIL/uL (3.63-4.92); WHITE BLOOD COUNT (AUTO) 7.7 K/uL (3.8-11.8)
--- NOTE | 2017-11-03 12:00 | NUR ---
RESULTS OF CT SCAN WERE READ TO ANTONELLA CASTANON NP. ORDERS FOR CBC AND BMP WERE RECEIVED.
[2017-11-03 12:05] LABS: ALANINE AMINOTRANSFERASE 20 U/L (14-59); ALKALINE PHOSPHATASE 52 U/L (50-136); ASPARTATE AMINOTRANSFERASE 15 U/L (15-37); BILIRUBIN,TOTAL 0.9 mg/dL (0.2-1.0); CARBON DIOXIDE 30 mmol/L (21-32); CHLORIDE 106 mmol/L (98-107); GLUCOSE 170 mg/dL (74-106); POTASSIUM 3.2 mmol/L (3.5-5.1); TOTAL PROTEIN, SERUM 6.3 g/dL (6.4-8.2); UREA NITROGEN, BLOOD 22 mg/dL (7-18)
[2017-11-03 15:53] VITALS: BP 168/78
[2017-11-03] MEDS ORDERED: POTASSIUM CHLORIDE 20 MEQ POWDER PACKET PO ONE (16:30)
--- NOTE | 2017-11-03 17:30 | NUR ---
code stroke called
[2017-11-03 17:35] VITALS: BP 122/86
--- NOTE | 2017-11-03 17:44 | NUR ---
GPS/RN- code stroke called on patient Received report from nurse Harriet Diop RN, patient altered from earlier this am per nurse, patient was able to communicate with no slurring noted. patient has weakness on Left Side, CT was order with results reported to Jarret Olivia DNP this am. Orders to have Neuro consult follow patient, continue to observe . nurse Harriet Diop RN, reports patient slurring now. Code stroke called, Blood Sugar checked 144mg/dl. vitals checked 122/86, HR 101, RR 19, 02 sat 100% on room air. EKG performed by Respiratory. Jarret Olivia DNP. patient being taken to CT per geno stroke protocol and then ICU,no orders received from Jarret Olivia DNP, he will see patient. Dr Estrada notified, Discontinue hold and medications from psychiatry.
--- NOTE | 2017-11-03 17:45 | NUR ---
PATIENT WAS NOTED TO BE SLEEPY AND TIRED. PT IS RESPONSIVE, SPEECH WAS NOTED TO HAVE SLURRED SPEECH. PT IS A/O X 2, PER BASELINE. PT WAS ASKED TO SMILE, AND PT WAS NOTED TO HAVE FACIAL DROOPING ON LEFT SIDE. PT WAS ASKED TO SQUEEZE FINGERS AND NOTED TO HAVE SIGNIFICANT WEAKNESS IN LEFT HAND. PT HAD NO RESISTANCE AGAINST GRAVITY IN HER LEFT ARM. RIGHT ARM WAS NORMAL, WAS ABLE TO KEEP UP FOR 10 SEC. PT IS ABLE TO HAVE MOVEMENT IN RIGHT LEG AND FOOT BUT NOT LEFT. PT WAS ABLE TO BLINK HER BOTH EYES AND RAISE HER EYE BROWS. PT DENIES PAIN OR SOB. BS WAS 144.
[2017-11-03 18:35] LABS: BASOPHILS # (AUTO) 0.1 K/uL (0.0-8.0); BASOPHILS % (AUTO) 1.2 % (0.0-2.0); EOSINOPHILS # (AUTO) 0.3 K/uL (0.0-0.7); EOSINOPHILS % (AUTO) 2.3 % (0.0-7.0); HEMATOCRIT 44.3 % (31.2-41.9); HEMOGLOBIN 14.9 g/dL (10.9-14.3); LYMPHOCYTES # (AUTO) 1.4 K/uL (20.0-40.0); LYMPHOCYTES % (AUTO) 13.3 % (20.5-51.5); MEAN CORPUSCULAR HEMOGLOBIN 27.6 uug (24.7-32.8); MEAN CORPUSCULAR HGB CONC 34 g/dL (32.3-35.6); MEAN CORPUSCULAR VOLUME 82.4 fL (75.5-95.3); MONOCYTES # (AUTO) 1.1 K/uL (2.0-10.0); NEUTROPHILS % (AUTO) 73.2 % (38.5-71.5); PLATELET COUNT (AUTO) 182 K/uL (179-408); RED BLOOD CELL COUNT(AUTO) 5.38 MIL/uL (3.63-4.92); WHITE BLOOD COUNT (AUTO) 10.9 K/uL (3.8-11.8)
[2017-11-03 18:42] LABS: CARBON DIOXIDE 29 mmol/L (21-32); CHLORIDE 106 mmol/L (98-107); CREATININE 0.9 mg/dL (0.6-1.3); GLUCOSE 151 mg/dL (74-106); POTASSIUM 4.8 mmol/L (3.5-5.1); UREA NITROGEN, BLOOD 26 mg/dL (7-18)
[2017-11-06] MEDS ORDERED: ATOR40TA PO (11:40)
[2017-11-06] MEDS ORDERED: CLOP75TA15 PO (11:40)
== END 2017-11-03 18:20 | disposition short-term general hospital (02) | DRG 885 ==
LOC: ER 20:43 → GPS 23:51
PROVIDERS: ADMIT Psychiatry & Neurology Psychiatry; ATTEND Nurse Practitioner Acute Care
PROC: 0HBRXZZ Excision of Toe Nail, External Approach (ICD-10-PCS; principal; 2017-10-26)
DX: F29 Unspecified psychosis not due to a substance or known physiological condition (principal); G93.41 Metabolic encephalopathy; N39.0 Urinary tract infection, site not specified; R41.4 Neurologic neglect syndrome; F03.90 Unspecified dementia, unspecified severity, without behavioral disturbance, psychotic disturbance, mood disturbance, and anxiety; Z79.82 Long term (current) use of aspirin; D69.6 Thrombocytopenia, unspecified; M19.90 Unspecified osteoarthritis, unspecified site; E53.8 Deficiency of other specified B group vitamins; L60.3 Nail dystrophy; M21.612 Bunion of left foot; M21.611 Bunion of right foot; M20.42 Other hammer toe(s) (acquired), left foot; M20.41 Other hammer toe(s) (acquired), right foot; F32.9 Major depressive disorder, single episode, unspecified; D63.8 Anemia in other chronic diseases classified elsewhere; Z91.128 Patient's intentional underdosing of medication regimen for other reason; I10 Essential (primary) hypertension
CPT/HCPCS: 36415; 70030-TC; 70450; 71045; 80307; 84443; 85025; 85730; 86850; 86900; 86901; 87086; 93005; 97116; 97530; A4663; G0480; G0480-TC; J1630; J2060

== ENCOUNTER 2017-11-03 17:58 | Inpatient (IN) | payer MEDICARE, MEDICAID ==
[2017-11-03] VITALS (18 sets, daily range): BP systolic 136–227; BP diastolic 36–139
[~2017-11-03] VITALS: Ht 160 cm; Wt 72.6 kg
[~2017-11-03 17:58] MED LIST: ACET325T53 PO; ASPI-605 PO; CARV3.122 PO; CLON0.3P TD; CYAN10009 PO; DOCU100C36 PO; LORA10TA7 PO; MAGN400O6 PO; MULT1TAB73 PO
[2017-11-03] MEDS ORDERED: IV NORMAL SALINE 250 ML IV ONE (18:12)
[2017-11-03] MEDS ORDERED: ALTEPLASE 100 MG VIAL IV ONE (18:15)
[2017-11-03] MEDS ORDERED: ACETAMINOPHEN 650 MG SUPP.RECT RC PRN (18:15)
[2017-11-03 18:18] LABS: ABG BASE EXCESS 4.6 mmol/L; ABG HCO3 29.1 mmol/L; ABG PCO2 42.4 mmHg (35.0-45.0); ABG PH 7.454 (7.350-7.450); ABG PO2 150.5 mmHg (75.0-100.0); ABG SITE RIGHT RADIAL; COHb 1.2 % (0.5-1.5); MetHb 0.3 % (0.0-1.5); O2Hb 97.8 % (94.0-97.0); VENT MODE Nasal Cannula
[2017-11-03] MEDS ORDERED: IOHEXOL 350 100 ML INFUS..BTL ONE (18:41)
[2017-11-03] MEDS ORDERED: SWABABLE VALVE TRANSFER SET EA MC ONE (18:41)
[2017-11-03] MEDS ORDERED: IV NORMAL SALINE 100 ML ONE (18:41)
[2017-11-03] MEDS ORDERED: NORMAL SALINE FLUSH 10 ML DISP.SYRIN ONE (18:41)
[2017-11-03] MEDS: LABETALOL HCL 100 MG/20 ML VIAL IV PRN ×2 (20:09→22:08)
[2017-11-03] MEDS: IV NS 1000 ML 1,000 ML IV PRN (20:09)
[2017-11-03] MEDS ORDERED: NICARDIPINE IN NS 200 ML IV PRN ×2 (22:15→23:30)
[2017-11-03] MEDS ORDERED: hydrALAZINE HCL 20 MG/1 ML VIAL IV ONE (22:30)
[2017-11-03] MEDS ORDERED: hydrALAZINE HCL 20 MG/1 ML VIAL ONE (23:22)
[2017-11-03] MEDS ORDERED: NICARDIPINE IN NS 200 ML IV ONE (23:34)
[2017-11-04] VITALS (38 sets, daily range): BP systolic 93–214; BP diastolic 52–158
[2017-11-04 01:00] LABS: *BILIRUBIN,URIN NEGATIVE (NEGATIVE); *BLOOD, URINE 1+ (NEGATIVE); *CLARITY,URINE CLEAR (CLEAR); *COLOR,URINE LIGHT YELLOW (YELLOW); *KETONES,URINE NEGATIVE (NEGATIVE); *PROTEIN,URINE NEGATIVE (NEGATIVE); *UROBILINOGEN,URINE 0.2 E.U./dl (NORMAL); LEUKOCYTE ESTERASE ,URINE NEGATIVE (NEGATIVE); NITRITE, URINE NEGATIVE (NEGATIVE); PH,URINE 7.5 (5.0-8.0); UGLUCOSE NEGATIVE (NEGATIVE)
[2017-11-04 01:12] LABS: BACTERIA,URINE NONE SEEN /HPF (NONE SEEN); SQUAMOUS EPITHELIAL CELL,UR MODERATE /HPF (NONE SEEN); WBC,URINE 0-3 /HPF (0-3)
[2017-11-04 05:26] LABS: BASOPHILS # (AUTO) 0.1 K/uL (0.0-8.0); BASOPHILS % (AUTO) 0.4 % (0.0-2.0); EOSINOPHILS % (AUTO) 0.1 % (0.0-7.0); HEMOGLOBIN 15.2 g/dL (10.9-14.3); LYMPHOCYTES # (AUTO) 0.9 K/uL (20.0-40.0); LYMPHOCYTES % (AUTO) 6.3 % (20.5-51.5); MEAN CORPUSCULAR HEMOGLOBIN 27.4 uug (24.7-32.8); MEAN CORPUSCULAR HGB CONC 33 g/dL (32.3-35.6); MEAN CORPUSCULAR VOLUME 82.8 fL (75.5-95.3); MONOCYTES # (AUTO) 0.6 K/uL (2.0-10.0); MONOCYTES % (AUTO) 4.3 % (0.0-11.0); NEUTROPHILS # (AUTO) 12.7 K/uL (1.8-8.9); NEUTROPHILS % (AUTO) 88.9 % (38.5-71.5); PLATELET COUNT (AUTO) 224 K/uL (179-408); RED BLOOD CELL COUNT(AUTO) 5.56 MIL/uL (3.63-4.92); WHITE BLOOD COUNT (AUTO) 14.3 K/uL (3.8-11.8)
[2017-11-04 05:37] LABS: ALANINE AMINOTRANSFERASE 19 U/L (14-59); ALKALINE PHOSPHATASE 62 U/L (50-136); ASPARTATE AMINOTRANSFERASE 19 U/L (15-37); BILIRUBIN,TOTAL 0.9 mg/dL (0.2-1.0); CARBON DIOXIDE 26 mmol/L (21-32); CHLORIDE 110 mmol/L (98-107); CHOLESTEROL 216 mg/dL (<200); GLUCOSE 181 mg/dL (74-106); HDL CHOLESTEROL 50 mg/dL (40-60); POTASSIUM 3.8 mmol/L (3.5-5.1); TOTAL PROTEIN, SERUM 7.2 g/dL (6.4-8.2); TRIGLYCERIDES 88 MG/DL (30-150); UREA NITROGEN, BLOOD 24 mg/dL (7-18)
[2017-11-04 06:08] LABS: THYROID STIMULATING HORMONE 0.725 mIU/mL (0.358-3.740)
[2017-11-04] MEDS: IV NS 1000 ML 1,000 ML IV PRN (11:02)
[2017-11-04] MEDS: ASPIRIN EC 81 MG TABLET.DR PO SCH (12:35)
[2017-11-04] MEDS: FUROSEMIDE 20 MG/2 ML VIAL IV ONE ×2 (12:36→12:50)
[2017-11-04] MEDS: hydrALAZINE HCL 50 MG TABLET PO SCH ×3 (12:37→20:50)
[2017-11-04] MEDS: AMLODIPINE 5 MG TABLET PO SCH ×2 (12:37→20:50)
[2017-11-04] MEDS: METOPROLOL TARTRATE 50 MG TABLET PO SCH ×2 (12:38→20:50)
[2017-11-04] MEDS: IV 1/2NS 1000 ML 1,000 ML IV PRN (14:32)
[2017-11-04] MEDS: ATORVASTATIN 20 MG TABLET PO SCH (20:50)
[2017-11-04] MEDS: ONDANSETRON 4 MG/2 ML VIAL IV PRN (20:51)
[2017-11-04] MEDS: Z GUARD REMEDY PASTE 57 GM TUBE TOP PRN (20:51)
[2017-11-05] VITALS: BP 126/57
[2017-11-05 04:00] VITALS: BP_SYST 131; BP_SYST 152; BP_DIAS 56; BP_DIAS 69
[2017-11-05] MEDS: IV 1/2NS 1000 ML 1,000 ML IV PRN ×2 (05:10→14:21)
[2017-11-05] MEDS: hydrALAZINE HCL 50 MG TABLET PO SCH ×3 (06:29→21:41)
[2017-11-05] MEDS: Z GUARD REMEDY PASTE 57 GM TUBE TOP PRN ×2 (06:40→21:41)
[2017-11-05 08:00] VITALS: BP 133/58
[2017-11-05] MEDS: AMLODIPINE 5 MG TABLET PO SCH ×2 (09:10→21:40)
[2017-11-05] MEDS: METOPROLOL TARTRATE 50 MG TABLET PO SCH ×2 (09:11→21:40)
[2017-11-05] MEDS: ASPIRIN EC 81 MG TABLET.DR PO SCH (09:12)
[2017-11-05 11:33] VITALS: BP 131/84
[2017-11-05 12:31] LABS: BASOPHILS # (AUTO) 0.1 K/uL (0.0-8.0); EOSINOPHILS # (AUTO) 0.2 K/uL (0.0-0.7); EOSINOPHILS % (AUTO) 1.5 % (0.0-7.0); HEMATOCRIT 43.4 % (31.2-41.9); HEMOGLOBIN 14.6 g/dL (10.9-14.3); LYMPHOCYTES # (AUTO) 1.9 K/uL (20.0-40.0); LYMPHOCYTES % (AUTO) 16.3 % (20.5-51.5); MEAN CORPUSCULAR HEMOGLOBIN 27.9 uug (24.7-32.8); MEAN CORPUSCULAR HGB CONC 34 g/dL (32.3-35.6); MEAN CORPUSCULAR VOLUME 82.8 fL (75.5-95.3); MONOCYTES % (AUTO) 9.1 % (0.0-11.0); NEUTROPHILS # (AUTO) 8.2 K/uL (1.8-8.9); NEUTROPHILS % (AUTO) 72.1 % (38.5-71.5); PLATELET COUNT (AUTO) 184 K/uL (179-408); RED BLOOD CELL COUNT(AUTO) 5.24 MIL/uL (3.63-4.92); WHITE BLOOD COUNT (AUTO) 11.4 K/uL (3.8-11.8)
[2017-11-05 12:34] LABS: CARBON DIOXIDE 26 mmol/L (21-32); CHLORIDE 108 mmol/L (98-107); CREATININE 0.8 mg/dL (0.6-1.3); GLUCOSE 140 mg/dL (74-106); POTASSIUM 3.5 mmol/L (3.5-5.1); UREA NITROGEN, BLOOD 20 mg/dL (7-18)
[2017-11-05 16:00] VITALS: BP 103/48
[2017-11-05 19:00] VITALS: BP 100/48
[2017-11-05] MEDS: ATORVASTATIN 20 MG TABLET PO SCH (21:39)
[2017-11-05] MEDS: ONDANSETRON 4 MG/2 ML VIAL IV PRN (21:43)
[2017-11-06] MEDS: IV 1/2NS 1000 ML 1,000 ML IV PRN (03:54)
[2017-11-06 04:00] VITALS: BP 101/47
[2017-11-06] MEDS: hydrALAZINE HCL 50 MG TABLET PO SCH ×2 (05:26→14:00)
[2017-11-06 06:02] LABS: BASOPHILS # (AUTO) 0.1 K/uL (0.0-8.0); BASOPHILS % (AUTO) 0.5 % (0.0-2.0); EOSINOPHILS # (AUTO) 0.2 K/uL (0.0-0.7); EOSINOPHILS % (AUTO) 1.4 % (0.0-7.0); HEMATOCRIT 38.6 % (31.2-41.9); HEMOGLOBIN 12.8 g/dL (10.9-14.3); LYMPHOCYTES # (AUTO) 1.5 K/uL (20.0-40.0); LYMPHOCYTES % (AUTO) 13.1 % (20.5-51.5); MEAN CORPUSCULAR HEMOGLOBIN 27.4 uug (24.7-32.8); MEAN CORPUSCULAR HGB CONC 33 g/dL (32.3-35.6); MEAN CORPUSCULAR VOLUME 82.4 fL (75.5-95.3); MONOCYTES # (AUTO) 1.4 K/uL (2.0-10.0); MONOCYTES % (AUTO) 12.7 % (0.0-11.0); NEUTROPHILS # (AUTO) 8.1 K/uL (1.8-8.9); NEUTROPHILS % (AUTO) 72.3 % (38.5-71.5); PLATELET COUNT (AUTO) 165 K/uL (179-408); RED BLOOD CELL COUNT(AUTO) 4.69 MIL/uL (3.63-4.92); WHITE BLOOD COUNT (AUTO) 11.1 K/uL (3.8-11.8)
[2017-11-06 06:06] LABS: CARBON DIOXIDE 28 mmol/L (21-32); CHLORIDE 110 mmol/L (98-107); CREATININE 0.9 mg/dL (0.6-1.3); GLUCOSE 112 mg/dL (74-106); POTASSIUM 3.5 mmol/L (3.5-5.1); UREA NITROGEN, BLOOD 26 mg/dL (7-18)
[2017-11-06] MEDS ORDERED: ASPIRIN EC 81 MG TABLET.DR PO ONE (10:14)
[2017-11-06] MEDS ORDERED: METOPROLOL SUCCINATE XL 50 MG TAB.SR.24H PO ONE (10:21)
[2017-11-06] MEDS ORDERED: AMLODIPINE 5 MG TABLET ONE (10:22)
[2017-11-06] MEDS ORDERED: METOPROLOL TARTRATE 50 MG TABLET ONE (10:23)
[2017-11-06] MEDS: ASPIRIN EC 81 MG TABLET.DR PO SCH (10:37)
[2017-11-06] MEDS: AMLODIPINE 5 MG TABLET PO SCH (10:38)
[2017-11-06] MEDS: METOPROLOL TARTRATE 50 MG TABLET PO SCH (10:38)
[2017-11-06] MEDS ORDERED: CLOP75TA15 PO (11:40)
[2017-11-06] MEDS ORDERED: ATOR40TA PO (11:40)
[2017-11-06 11:42] VITALS: BP 123/60
[2017-11-06 16:02] VITALS: BP 132/72
== END 2017-11-06 18:30 | DRG 64 ==
LOC: CCU 17:58 → TELE-TD 11-04 19:36 → TELE 11-06 15:50
PROVIDERS: ADMIT Nurse Practitioner Acute Care; ATTEND Nurse Practitioner Acute Care
DX: I63.521 Cerebral infarction due to unspecified occlusion or stenosis of right anterior cerebral artery (principal); G93.41 Metabolic encephalopathy; G81.94 Hemiplegia, unspecified affecting left nondominant side; N39.0 Urinary tract infection, site not specified; R29.810 Facial weakness; R40.2423 Glasgow coma scale score 9-12, at hospital admission; I11.9 Hypertensive heart disease without heart failure; R29.719 NIHSS score 19; D63.8 Anemia in other chronic diseases classified elsewhere; E78.5 Hyperlipidemia, unspecified; F32.9 Major depressive disorder, single episode, unspecified; F03.90 Unspecified dementia, unspecified severity, without behavioral disturbance, psychotic disturbance, mood disturbance, and anxiety; M19.90 Unspecified osteoarthritis, unspecified site; R79.89 Other specified abnormal findings of blood chemistry
CPT/HCPCS: 36415; 36600; 70030-TC; 70496; 70551; 71045; 83605; 83735; 84100; 84443; 85025; 85610; 85730; 87086; 92526; 92610; 93307; 97110; 97112; 97165; 97530; J0360; J1940; J2405; J3490; J7030; Q9967